=== PATIENT | male | born 1965 | race Caucasian/White ===

== ENCOUNTER 2019-03-16 10:09 | Emergency (ER) | payer OTHER ==
[~2019-03-16] VITALS: Ht 170.2 cm; Wt 76.0 kg
[~2019-03-16 10:09] MED LIST: ALBU8.5H5 INH; CIPR500T4 PO; FLOV44 IH; HYDR-3498 PO; HYDR-3612 PO; IBUP800T48 PO; METR500T PO; PRED20TA PO
[2019-03-16 10:12] VITALS: BP 131/73; PULSE 57; RESP 18; Ht 170.2 cm; Wt 76.0 kg
[2019-03-16] MEDS ORDERED: KETOROLAC 60 MG INJ IM STA (11:08)
--- NOTE | 2019-03-16 11:29 | ERD ---
ER Documentation Chief Complaint Chief Complaint pt bib self with c/o left calf pain x 3 wks s/p crossfit numbness yesterday HPI This is a 53-year-old male with a nonsignificant past medical history presents ED with complaints of left calf pain x3 weeks. Patient states that he is very active with CrossFit. Patient states that 3 weeks ago during CrossFit during cool down he started to experience left calf cramping pain. Patient states that he has had this pain off and on for the past 3 weeks. Describes it as a charley horse sensation. Pain is alleviated when moving and stretching. Pain occurs when patient is not moving. Admits to some paresthesias of the left foot. Denies fever, chills, decreased range of motion, lack of sensation, chest pain, shortness breath, trouble breathing and all other symptoms. Patient denies PE risk factors including recent surgery/immobilization, smoking, prior hx of DVT, coagulopathy, hx of cancer, exogenous estrogen use, one sided lower extremity swelling. Has an appointment scheduled at [facility] next week ROS All systems reviewed and are negative except as per history of present illness. Medications Home Meds Active Scripts Ibuprofen* (Motrin*) 800 Mg Tab, 800 MG PO Q6, #30 TAB Prov:LEONARDO MCKEON PA-C 03/16/19 Cyclobenzaprine Hcl* (Cyclobenzaprine Hcl*) 10 Mg Tablet, 10 MG PO TID, #15 TAB Prov:LEONARDO MCKEON PA-C 03/16/19 Hydrocodone Bit-Acetaminophen* ([place]*) 5-325 Mg Tab, 1 TAB PO Q6 PRN for PAIN, #10 TAB Prov:JOEL CHAMPAGNE PA-C 12/25/15 Metronidazole* (Flagyl*) 500 Mg Tablet, 500 MG PO TID for 7 Days, TAB Prov:JOEL CHAMPAGNE PA-C 12/25/15 Ciprofloxacin Hcl* (Ciprofloxacin Hcl*) 500 Mg Tablet, 500 MG PO BID for 7 Days, TAB Prov:JOEL CHAMPAGNE PA-C 12/25/15 Albuterol Sulfate* (Albuterol Sulfate* HFA) 8.5 Gm Hfa.aer.ad, 1-2 PUFF INH Q4 PRN for SHORTNESS OF BREATH, #1 EA Prov:NILSON OBRIEN PA-C 10/24/15 Prednisone* (Prednisone*) 20 Mg Tab, 40 MG PO DAILY for 4 Days, TAB Prov:NILSON OBRIEN PA-C 10/24/15 Ibuprofen* (Motrin*) 800 Mg Tab, 800 MG PO Q6H PRN for PAIN AND OR ELEVATED TEMP, #30 TAB Prov:JIMENEZKYMKEYANNA Freeman NP 08/30/15 Reported Medications Hydrocodone Bit-Acetaminophen* ([place]*) 1 Tab Tab, 1 TAB PO PRN 07/04/13 Fluticasone Propionate* (Flovent* 44) 13 Gm Aer.w.adap, 13 GM IH PRN 07/04/13 Allergies Allergies: Coded Allergies: No Known Allergy (Verified , 12/24/15) PMhx/Soc History of Surgery: Yes (ORIF R clavicle, BACK SURGERY ) Anesthesia Reaction: No Hx Neurological Disorder: No Hx Respiratory Disorders: Yes (ASTHMA ) Hx Cardiac Disorders: No Hx Psychiatric Problems: No Hx Miscellaneous Medical Probl: No Hx Alcohol Use: No Hx Substance Use: No Hx Tobacco Use: No FmHx Family History: No diabetes Physical Exam Vitals Vital Signs Date Temp Pulse Resp B/P (MAP) Pulse Ox O2 O2 Flow FiO2 Time Delivery Rate 03/16/19 98.4 57 18 131/73 98 10:12 (92) Physical Exam Physical Exam Vitals signs: Reviewed by me. General: Well developed, well nourished, in no acute distress. Patient is awake and alert. Head: Normocephalic, atraumatic. Eyes: Normal conjunctiva, Pupils PERRLA, EOM intact grossly ENT: Pharynx is clear, Moist mucous membranes, external ears, nose and mouth normal Neck: Supple, no masses, lymphadenopathy or JVD Respiratory: Clear to auscultation bilaterally with no wheezing, rhonchi, rales, no distress Cardiovascular: RRR, no murmurs, rubs, or gallops MSK: No edema, Lower Extremity -leftl: Skin: No laceration Compartments: Soft Motor: Full active range of motion hip/knee/ankle/foot Sensation: Intact to light touch FDWS/MF/LF/P surfaces. Bones: Mild tenderness palpation of left calf, nontender pelvis/knee/proximal tibia/ malleoli/foot Joints: No effusion or laxity Pulses/Perfusion: 2+ DP, Capillary refill < 2 seconds No calf size discrepancy, Homans sign negative Neurologic: Alert and oriented, moving all extremities, normal speech, no focal weakness, no cerebellar signs. Normal mentation Skin: warm and dry, No rash Psych: Normal mood Results 24 hrs Current Medications Medications Dose Sig/Mere Start Time Status Last (Trade) Ordered Route PRN Stop Time Admin Dose Reason Admin Ketorolac 60 mg ONCE STAT 03/16/19 DC 03/16/19 Tromethamine IM 11:08 11:21 (Toradol) 03/16/19 11:10 Procedures/MDM EKG, MONITORS, & DIAGNOSTIC IMAGING: imaging reviewed ER COURSE: The patient was given toradol The medication was well tolerated and the patient reports improvement in symptoms. The patient was stable throughout ED course. I kept the patient and/or family informed of laboratory and diagnostic imaging results throughout the emergency room course. The patient was promptly evaluated and a treatment plan was devised based on H&P and other data. This plan was discussed with the patient who agreed and had no further questions or concerns prior to discharge. MEDICAL DECISION MAKING: This is a 53-year male who presents ED with left calf pain times 3 week. Physical examination is remarkable for some tenderness to the left calf. Given patient's history of doing CrossFit regularly this is likely a muscle strain but given location of pain Doppler was ordered to rule out DVT. Ultrasound shows no evidence of DVT. X-rays are unremarkable. This is likely a muscle spasm/strain. Patient was advised to follow-up with orthopedist. History and physical examination other data not consistent with emergent processes including but not limited to DVT, fracture, dislocation, tendon rupture, ischemia, neurovascular injury, compartment syndrome, septic joint, avascular necrosis, osteomyelitis, necrotizing fasciitis, septic joint, septic arthritis, or other emergent conditions. Patient's vitals are stable and can be managed outpatient with close follow-up. Advised patient to follow-up with primary care in the next 48 hours. Return to ED with any worsening symptoms. DISPOSITION PLAN: We discussed follow up with the patient's primary care doctor within 24 to 48 hours. Patient counseled regarding my diagnostic impression and care plan. Prior to discharge all questions answered. Pt agrees with treatment plan and understands strict return precautions. Precautionary instructions provided incl uding instructions to return to the ER if not improving or for any worsening or changing symptoms or concerns. SPECIALIST FOLLOW UP RECOMMENDED: orthopedist Patient has been advised to follow up with primary care in 1-2 days. Disclaimer: Inadvertent spelling and grammatical errors are likely due to EHR/dictation software use and do not reflect on the overall quality of patient care. Also, please note that the electronic time recorded on this note does not necessarily reflect the actual time of the patient encounter. Departure Diagnosis: Primary Impression: Pain of left leg Condition: Stable Patient Instructions: Muscle Spasm, Muscle Strain, Extremity Referrals: FRAN COKER MD [facility] Additional Instructions: Patient advised to return to the ED immediately for new or worsening symptoms. Patient advised to follow up with primary care provider in the next 24-48 hours. Patient verbalized understanding and agrees with treatment plan and course of action. If patient has no primary care they may follow up with one of the [facility] clinics listed on the following page or one of the options listed below [facility] [address] [place] [id number] or [facility] [address] [place] [address] or [facility] [address] [place] [address] LEONARDO MCKEON PA-C March 16, 2019 11:29
[2019-03-16] MEDS ORDERED: CYCL10TA7 PO (12:05)
[2019-03-16] MEDS ORDERED: IBUP800T48 PO (12:05)
== END 2019-03-16 12:36 | disposition home or self-care (01) ==
LOC: FTE 10:09
DX: M79.605 Pain in left leg (principal); J45.909 Unspecified asthma, uncomplicated
CPT/HCPCS: 73590; 93971; 96372; 99285; J1885

== ENCOUNTER 2019-03-21 09:42 | Emergency (ER) | payer OTHER ==
[~2019-03-21] VITALS: Ht 167.6 cm; Wt 77.5 kg
[~2019-03-21 09:42] MED LIST changes: +CYCL10TA7 PO
[2019-03-21 09:45] VITALS: BP 139/76; PULSE 67; RESP 16; Ht 167.6 cm; Wt 77.5 kg
[2019-03-21] MEDS ORDERED: KETOROLAC 60 MG INJ IM STA (12:04)
[2019-03-21] MEDS ORDERED: NAPR-985 PO (12:15)
--- NOTE | 2019-03-21 12:24 | ERD ---
ER Documentation Chief Complaint Chief Complaint lt leg pain x 1 week HPI 53-year-old male patient with a past medical history of asthma presents to the ED complaining of left buttocks pain, radiating to the left leg that started abo ut a week ago. States that he is also had some left lateral leg pain that he came in for evaluation, on March 16, 2019. Patient rates his pain an 8 out of 10. States that he does CrossFit, was doing kettle bells, 4 weeks ago, started to experience some pain but thought through the workout, continue to work out for the last 3 and half weeks until was worsened in pain, a week and half ago. Denies any increased redness, swelling, saddle anesthesia, urine or bowel incontinence. Denies any fever, chills, abdominal pain, chest pain, shortness of breath, dysuria, urgency, frequency. ROS All systems reviewed and are negative except as per history of present illness. Medications Home Meds Active Scripts Naproxen* (Naprosyn*) 500 Mg Tablet, 500 MG PO BID PRN for PAIN AND/OR INFLAMMATION, #30 TAB Prov:DEBORAH BARRIOS PA-C 03/21/19 Ibuprofen* (Motrin*) 800 Mg Tab, 800 MG PO Q6, #30 TAB Prov:LEONARDO MCKEON PA-C 03/16/19 Cyclobenzaprine Hcl* (Cyclobenzaprine Hcl*) 10 Mg Tablet, 10 MG PO TID, #15 TAB Prov:LEONARDO MCKEON PA-C 03/16/19 Hydrocodone Bit-Acetaminophen* ([place]*) 5-325 Mg Tab, 1 TAB PO Q6 PRN for PAIN, #10 TAB Prov:JOEL CHAMPAGNE PA-C 12/25/15 Metronidazole* (Flagyl*) 500 Mg Tablet, 500 MG PO TID for 7 Days, TAB Prov:JOEL CHAMPAGNE PA-C 12/25/15 Ciprofloxacin Hcl* (Ciprofloxacin Hcl*) 500 Mg Tablet, 500 MG PO BID for 7 Days, TAB Prov:JOEL CHAMPAGNE PA-C 12/25/15 Albuterol Sulfate* (Albuterol Sulfate* HFA) 8.5 Gm Hfa.aer.ad, 1-2 PUFF INH Q4 PRN for SHORTNESS OF BREATH, #1 EA Prov:NILSON OBRIEN PA-C 10/24/15 Prednisone* (Prednisone*) 20 Mg Tab, 40 MG PO DAILY for 4 Days, TAB Prov:NILSON OBRIEN PA-C 10/24/15 Ibuprofen* (Motrin*) 800 Mg Tab, 800 MG PO Q6H PRN for PAIN AND OR ELEVATED TEMP, #30 TAB Prov:JIMENEZKYMKEYANNA Freeman NP 08/30/15 Reported Medications Hydrocodone Bit-Acetaminophen* ([place]*) 1 Tab Tab, 1 TAB PO PRN 07/04/13 Fluticasone Propionate* (Flovent* 44) 13 Gm Aer.w.adap, 13 GM IH PRN 07/04/13 Allergies Allergies: Coded Allergies: No Known Allergy (Verified , 12/24/15) PMhx/Soc History of Surgery: Yes (ORIF R clavicle, BACK SURGERY ) Anesthesia Reaction: No Hx Neurological Disorder: No Hx Respiratory Disorders: Yes (ASTHMA ) Hx Cardiac Disorders: No Hx Psychiatric Problems: No Hx Miscellaneous Medical Probl: No Hx Alcohol Use: No Hx Substance Use: No Hx Tobacco Use: No FmHx Family History: No diabetes, No coronary disease Physical Exam Vitals Vital Signs Date Temp Pulse Resp B/P (MAP) Pulse Ox O2 O2 Flow FiO2 Time Delivery Rate 03/21/19 98.2 67 16 139/76 99 09:45 (97) Physical Exam Const: [id number], well-nourished. In no acute distress. Head: Atraumatic, normocephalic Eyes: Normal Conjunctiva without injection ENT: Normal external ear, nose and mouth. Neck: Full range of motion. No meningismus. Resp: Clear to auscultation bilaterally. No wheezing, rhonchi, rales, or crackles. No accessory muscle use. No retractions. Cardio: Regular rate and rhythm, no murmurs Skin: No petechiae or rashes Back: No midline tenderness. No CVA tenderness. Ext: No cyanosis, or edema. Cap refill less than 2 seconds. Distal pulses intact bilaterally. Tenderness to palpation of fibular collateral ligament of the lateral aspect of patient's right knee. Full range of motion with flexion, extension of bilateral knees. Compartments soft. No palpable cords. No calf edema, erythema, tenderness to palpation. Positive left straight leg test. Neur: Awake and alert. Normal gait and coordination. Muscle strength 5/5. Sensation intact bilaterally. Psych: Normal Mood and Affect Result Diagram: 03/21/19 1116 03/21/19 1116 Results 24 hrs Laboratory Tests Test 03/21/19 11:16 White Blood Count 5.4 10^3/ul Red Blood Count 5.02 10^6/ul Hemoglobin 15.4 g/dl Hematocrit 45.9 % Mean Corpuscular Volume 91.4 fl Mean Corpuscular Hemoglobin 30.7 pg Mean Corpuscular Hemoglobin Concent 33.6 g/dl Red Cell Distribution Width 12.9 % Platelet Count 296 10^3/UL Mean Platelet Volume 9.0 fl Immature Granulocytes % 0.400 % Neutrophils % 65.2 % Lymphocytes % 22.3 % Monocytes % 8.0 % Eosinophils % 3.5 % Basophils % 0.6 % Nucleated Red Blood Cells % 0.0 /100WBC Immature Granulocytes # 0.020 10^3/ul Neutrophils # 3.5 10^3/ul Lymphocytes # 1.2 10^3/ul Monocytes # 0.4 10^3/ul Eosinophils # 0.2 10^3/ul Basophils # 0.0 10^3/ul Nucleated Red Blood Cells # 0.0 10^3/ul Urine Color YELLOW Urine Clarity CLEAR Urine pH 6.0 Urine Specific [place] 1.020 Urine Ketones NEGATIVE mg/dL Urine Nitrite NEGATIVE mg/dL Urine Bilirubin NEGATIVE mg/dL Urine Urobilinogen NEGATIVE mg/dL Urine Leukocyte Esterase NEGATIVE Em/ul Urine Hemoglobin NEGATIVE mg/dL Urine Glucose NEGATIVE mg/dL Urine Total Protein NEGATIVE mg/dl Sodium Level 141 mmol/L Potassium Level 4.8 mmol/L Chloride Level 106 mmol/L Carbon Dioxide Level 32 mmol/L Anion Gap 3 Blood Urea Nitrogen 16 mg/dl Creatinine 0.91 mg/dl Est Glomerular Filtrat Rate mL/min > 60 mL/min Glucose Level 80 mg/dl Uric Acid 4.3 mg/dl Calcium Level 9.6 mg/dl Total Bilirubin 0.5 mg/dl Direct Bilirubin 0.00 mg/dl Indirect Bilirubin 0.5 mg/dl Aspartate Amino Transf (AST/SGOT) 25 IU/L Alanine Aminotransferase (ALT/SGPT) 27 IU/L Alkaline Phosphatase 65 IU/L Creatine Kinase 93 IU/L Total Protein 7.0 g/dl Albumin 4.1 g/dl Globulin 2.90 g/dl Albumin/Globulin Ratio 1.41 Current Medications Medications Dose Sig/Mere Start Time Status Last (Trade) Ordered Route PRN Stop Time Admin Dose Reason Admin Ketorolac 60 mg ONCE STAT 03/21/19 DC 03/21/19 Tromethamine IM 12:04 12:11 (Toradol) 03/21/19 12:05 Procedures/MDM 53-year-old male patient with a past medical history of asthma presents to the ED complaining of left leg pain that started worsened about 1 week ago. Patient is afebrile and nontoxic-appearing. A CBC, CMP, total CK, was ordered to further evaluate patient. CK within normal limits. No leukocytosis. No electrolyte abnormalities. Liver enzymes within normal limits and BUN and creatinine are within normal limits. Patient is placed in an ericka wrap of left leg. Splint Assessment: Neurovascularly intact pre and post splint placement with good fit. Patient likely has some tendinitis of the left lateral leg. Differentials also include sciatica. Patient's extremity symptoms have stabilized while they have been evaluated in the department and are appropriate for outpatient follow up. No evidence of fractures, dislocations, compartment syndrome, neurologic injury, vascular injury, open joint, open fracture, tendon laceration, septic arthritis, osteomyelitis, DVT, foreign body, or other emergent conditions. Patient is ambulating here in the ED without difficulty. Denies saddle anesthesia, numbness or tingling, urine or bowel incontinence, weakness. Low suspicion for rhabdom yolysis, cauda equina syndrome, cord compression, nephrolithiasis, aortic aneurysm, aortic dissection, epidural abscess, spinal hematoma, malignancy, pyelonephritis, or other emergent conditions. Diagnosis: Pain of left leg, sciatica Discharge medications: Follow up with primary care physician in 1-2 days. Instructed patient to return to the ED sooner for any worsening symptoms. Patient's questions were answered. Patient is hemodynamically stable. Patient understood and agreed with discharge plan. Patient discharged stable. Disclaimer: Inadvertent spelling and grammatical errors are likely due to EHR/dictation software use and do not reflect on the overall quality of patient care. Also, please note that the electronic time recorded on this note does not necessarily reflect the actual time of the patient encounter. Departure Diagnosis: Primary Impression: Pain of left leg Additional Impression: Sciatica Laterality: left Qualified Codes: M54.32 - Sciatica, left side Condition: Stable Patient Instructions: Back Pain W/ Sciatica, Tendonitis Referrals: [facility], [facility] YOU HAVE RECEIVED A MEDICAL SCREENING EXAM AND THE RESULTS INDICATE THAT YOU DO NOT HAVE A CONDITION THAT REQUIRES URGENT TREATMENT IN THE EMERGENCY DEPARTMENT. FURTHER EVALUATION AND TREATMENT OF YOUR CONDITION CAN WAIT UNTIL YOU ARE SEEN IN YOUR DOCTORS OFFICE WITHIN THE NEXT 1-2 DAYS. IT IS YOUR RESPONSIBILITY TO MAKE AN APPOINTMENT FOR FOLOW-UP CARE. IF YOU HAVE A PRIMARY DOCTOR --you should call your primary doctor and schedule an appointment IF YOU DO NOT HAVE A PRIMARY DOCTOR YOU CAN CALL OUR PHYSICIAN REFERRAL HOTLINE AT IF YOU CAN NOT AFFORD TO SEE A PHYSICIAN YOU CAN CHOSE FROM THE FOLLOWING [facility] [address] [facility]. [facility] [address] [facility]. [facility] [address] [facility] [address] [facility] [address] [facility]. [facility] [address] [facility]. [facility] YOU HAVE RECEIVED A MEDICAL SCREENING EXAM AND THE RESULTS INDICATE THAT YOU DO NOT HAVE A CONDITION THAT REQUIRES URGENT TREATMENT IN THE EMERGENCY DEPARTMENT. FURTHER EVALUATION AND TREATMENT OF YOUR CONDITION CAN WAIT UNTIL YOU ARE SEEN IN YOUR DOCTORS OFFICE WITHIN THE NEXT 1-2 DAYS. IT IS YOUR RESPONSIBILITY TO MAKE AN APPOINTMENT FOR FOLOW-UP CARE. IF YOU HAVE A PRIMARY DOCTOR --you should call your primary doctor and schedule and appointment IF YOU DO NOT HAVE A PRIMARY DOCTOR YOU CAN CALL OUR PHYSICIAN REFERRAL HOTLINE AT . IF YOU CAN NOT AFFORD TO SEE A PHYSICIAN YOU CAN CHOSE FROM THE FOLLOWING [facility]: [facility] [address] [place] [address] [facility] [address] [place] [address] [facility] [address] [place] [address] [facility] Urgent Care 7 a.m.- 11 p.m. Every Day of the Week NO APPOINTMENT OR AUTHORIZATION NEEDED [facility] Hours: Tue-Tue 9:00 AM - 5:00 PM Additional Instructions: Call your primary care doctor TOMORROW for an appointment during the next 2-3 days.See the doctor sooner or return here if your condition worsens before your appointment time. DEBORAH BARRIOS PA-C March 21, 2019 12:24
== END 2019-03-21 12:25 | disposition home or self-care (01) ==
LOC: FTE 09:42
DX: M79.605 Pain in left leg (principal); J45.909 Unspecified asthma, uncomplicated; M54.32 Sciatica, left side
CPT/HCPCS: 36415; 80053; 81003; 82550; 84560; 85025; 96372; 99284; J1885